=== PATIENT | female | born 1995 | race Native Hawaiian/Other Pacific Islander ===

== ENCOUNTER 2017-04-26 23:32 | Emergency (ER) | payer OTHER ==
[~2017-04-26] VITALS: Ht 154.9 cm; Wt 45.4 kg
[2017-04-27 00:19] LABS: PLATELET COUNT 308 K/uL (152-353)
[2017-04-27 00:31] LABS: PARTIAL THROMBOPLASTIN TIME 22.1 SECONDS (24.5-33.6); POTASSIUM 3.1 mmol/L (3.6-5.2); SODIUM 138 mmol/L (136-145)
[2017-04-27 01:25] VITALS: BP 100/56; TEMP 98.5
== END 2017-04-27 01:28 | disposition home or self-care (01) ==
LOC: ED 23:32
PROVIDERS: Family Medicine
DX: R07.89 Other chest pain (principal); Z87.898 Personal history of other specified conditions; F41.9 Anxiety disorder, unspecified
CPT/HCPCS: 36415; 80053; 80307; 82550; 82553; 84484; 85027; 85379; 85610; 85730; 93005; 96374; 99283; G0479; J1885